=== PATIENT | female | born 2000 | race Two or more races ===

== ENCOUNTER 2024-05-01 05:40 | Emergency (ER) | payer SELFPAY ==
[~2024-05-01] VITALS: Ht 157.5 cm; Wt 52.4 kg
[2024-05-01 05:51] VITALS: BP 111/86; PULSE 62; RESP 16; TEMP 97.7; O2SAT 100
== END 2024-05-01 06:25 | disposition left against medical advice (07) ==
LOC: ER 05:42
DX: R10.13 Epigastric pain (principal); R11.10 Vomiting, unspecified; Z53.21 Procedure and treatment not carried out due to patient leaving prior to being seen by health care provider